=== PATIENT | male | born 1970 | race Caucasian/White ===

== ENCOUNTER 2019-07-07 23:34 | Emergency (ER) | payer MEDICARE, MEDICAID, OTHER ==
[~2019-07-07] VITALS: Ht 175.3 cm; Wt 68.2 kg
[2019-07-07] MEDS ORDERED: DARU1TAB3 PO (23:50)
[2019-07-07] MEDS ORDERED: CLON-570 PO (23:50)
[2019-07-08 03:33] VITALS: BP 146/82
== END 2019-07-08 03:44 | disposition home or self-care (01) ==
LOC: EMS 23:34
DX: F41.9 Anxiety disorder, unspecified (principal); F43.0 Acute stress reaction; F15.10 Other stimulant abuse, uncomplicated; F32.9 Major depressive disorder, single episode, unspecified; I10 Essential (primary) hypertension; Z79.899 Other long term (current) drug therapy; Z90.49 Acquired absence of other specified parts of digestive tract